=== PATIENT | female | born 1980 | race Caucasian/White ===

== ENCOUNTER 2017-10-16 21:29 | Emergency (ER) | payer SELFPAY, BC ==
[2017-10-16] MEDS: fentaNYL 100 MCG/2 ML INJECTION (J3010) IV (22:05)
[2017-10-16] MEDS: ONDANSETRON 4MG/2ML VIAL (J2405) IV (22:05)
[2017-10-16] MEDS: LIDOCAINE 1% MDV INJ 50 ML VIAL SC (22:45)
[2017-10-16] MEDS ORDERED: LIDOCAINE 1% MDV 20ML VIAL As Ordered (22:59)
[2017-10-16] MEDS: LIDOCAINE 2% MDV 20 ML VIAL SC (23:15)
== END 2017-10-17 00:31 | disposition home or self-care (01) ==
LOC: M ED 21:29
DX: S52.531A Colles' fracture of right radius, initial encounter for closed fracture (principal); W10.8XXA Fall (on) (from) other stairs and steps, initial encounter; Y92.098 Other place in other non-institutional residence as the place of occurrence of the external cause; F17.210 Nicotine dependence, cigarettes, uncomplicated
CPT/HCPCS: J2405

== ENCOUNTER → 2018-06-27 | Outpatient (CLI) | payer OTHER ==
[~2018-06-27] MED LIST: NAPR-50 PO; PERC5TAB12 PO
== END ==
LOC: M OUTALCOH 10:09
PROVIDERS: ATTEND Psychiatry & Neurology Psychiatry
DX: Z03.89 Encounter for observation for other suspected diseases and conditions ruled out (principal)

== ENCOUNTER 2018-07-04 15:34 | Outpatient (RCR) | payer OTHER | END 2018-07-27 | LOC: M OUTALCOH 15:34 | PROVIDERS: ATTEND Psychiatry & Neurology Psychiatry | DX: Z03.89 Encounter for observation for other suspected diseases and conditions ruled out (principal); Z72.0 Tobacco use ==

== ENCOUNTER 2018-12-19 17:02 | Emergency (ER) | payer OTHER, SELFPAY ==
[~2018-12-19] VITALS: Ht 152.4 cm; Wt 67.3 kg
[~2018-12-19 17:02] MED LIST changes: -NAPR-50 PO; +NAPR-837 PO
--- NOTE | 2018-12-19 18:20 | REP ---
Left scapula two views : There is no fracture or dislocation. Mineralization and joint spaces are normal. There are no calcifications or foreign bodies. Impression: Negative left scapula . Electronically Signed by Caleb Veliz MD 12/19/2018 06:11 P
[2018-12-19] MEDS ORDERED: CYCL5TAB PO (19:43)
[2018-12-19] MEDS ORDERED: AUGM875T28 PO (19:43)
[2018-12-19] MEDS ORDERED: KETO10TAB PO (19:43)
[2018-12-19] MEDS ORDERED: CYCLOBENZAPRINE 5MG TABLET PO ONE (19:45)
[2018-12-19] MEDS ORDERED: ADACEL/BOOSTRIX VACCINE (DIPHTH/PERTUSS/ACELL/TETANUS)0.5ML SYR (90715) IM ONE (19:45)
[2018-12-19] MEDS ORDERED: KETOROLAC TROMETHAMINE 10 MG TAB PO ONE (19:45)
[2018-12-19] MEDS ORDERED: AUGMENTIN 875 MG TAB PO ONE (19:45)
[2018-12-19 19:51] VITALS: BP 137/75
== END 2018-12-19 20:01 | disposition home or self-care (01) ==
LOC: M ED 17:02
DX: S41.032A Puncture wound without foreign body of left shoulder, initial encounter (principal); W22.8XXA Striking against or struck by other objects, initial encounter; Y92.830 Public park as the place of occurrence of the external cause; F17.210 Nicotine dependence, cigarettes, uncomplicated

== ENCOUNTER → 2019-03-21 | Outpatient (CLI) | payer MEDICAID ==
[~2019-03-21] MED LIST changes: +AUGM875T28 PO; +CYCL5TAB PO; +KETO10TAB PO
[2019-03-21 14:17] LABS: BASO % 0.3 % (0.0-1.0); EOS # 0.2 10^3/uL (0.0-0.5); EOS % 1.5 % (0.0-3.0); HEMATOCRIT 36.3 % (36.0-47.0); HEMOGLOBIN 12.2 g/dl (12.0-15.5); LYMPH % 17.5 % (24.0-44.0); MEAN CORPUSCULAR HEMOGLOBIN 31.9 pg (27.0-33.0); MEAN CORPUSCULAR HGB CONC 33.6 g/dl (32.0-36.5); MONO # 0.7 10^3/uL (0.0-0.8); NEUTROPHILS # 8.7 10^3/uL (1.5-8.5); NEUTROPHILS % 74.3 % (36.0-66.0); PLATELET COUNT, AUTOMATED 324 10^3/uL (150-450); RED BLOOD COUNT 3.82 10^6/uL (4.00-5.40); WHITE BLOOD COUNT 11.7 10^3/uL (4.0-10.0)
[2019-03-21 14:32] LABS: CREATININE,RANDOM URINE < 13.0 MG/DL; TOTAL PROTEIN,RANDOM URINE < 5.0 MG/DL (0.0-12.0)
[2019-03-21 14:42] LABS: ALT/SGPT 25 U/L (12-78); BILIRUBIN,TOTAL 0.2 MG/DL (0.2-1.0); CREATININE FOR GFR 0.62 MG/DL (0.55-1.30); FREE THYROXINE INDEX 3.7 % (1.3-4.8); GLOMERULAR FILTRATION RATE > 60.0 (>60); LDH LACTATE DEHYDROGENASE 146 U/L (84-246); T UPTAKE 24 % (30-39); THYROXINE (T4) 15.4 UG/DL (4.5-12.0); URIC ACID 2.6 MG/DL (2.6-6.0)
[2019-03-21 14:54] LABS: RUBELLA IgG QUALITATIVE IMMUNE (IMMUNE)
[2019-03-21 15:23] LABS: HIV 1&2 SCREEN CENTAUR NEGATIVE (NEGATIVE)
[2019-03-21 16:04] LABS: CHLAMYDIA DNA AMPLIFICATION NEGATIVE (NEGATIVE); GC DNA AMPLIFICATION NEGATIVE (NEGATIVE)
[2019-03-23 10:56] LABS: HEPATITIS C VIRUS ABY INDEX 0.1 INDEX (<0.8)
[2019-03-23 15:40] LABS: HPV HYBRID CAPTURE II Negative (Negative)
== END ==
LOC: M SMT 11:10
PROVIDERS: ATTEND Advanced Practice Midwife
DX: Z34.81 Encounter for supervision of other normal pregnancy, first trimester (principal); Z3A.12 12 weeks gestation of pregnancy

== ENCOUNTER → 2019-03-26 | Outpatient (CLI) | payer MEDICAID ==
--- NOTE | 2019-03-26 18:44 | REP ---
Clinical: Dating and viability. Technique: Transabdominal first trimester obstetrical ultrasound with color Doppler evaluation. Findings: Single live early intrauterine identified. CRL of 64 mm corresponds to 12 weeks 5 days gestational age with estimated date of delivery 10/03/2019. heart rate equals 163 beats per minute. No gross abnormalities are identified. Impression: A single live early intrauterine at 12 weeks 5 days gestational age. Complete anatomical assessment should be performed at 19-20 weeks. Electronically Signed by Zhen Burns MD 03/26/2019 06:36 P
== END ==
LOC: M RAD 15:47
PROVIDERS: ATTEND Advanced Practice Midwife
DX: O09.521 Supervision of elderly multigravida, first trimester (principal); O34.219 Maternal care for unspecified type scar from previous cesarean delivery; Z3A.12 12 weeks gestation of pregnancy

== ENCOUNTER → 2019-04-06 | Outpatient (CLI) | payer MEDICAID | LOC: M SMT 14:03 | PROVIDERS: ATTEND Advanced Practice Midwife | DX: O09.521 Supervision of elderly multigravida, first trimester (principal); Z3A.00 Weeks of gestation of pregnancy not specified ==

== ENCOUNTER → 2019-05-16 | Outpatient (CLI) | payer MEDICAID, OTHER ==
--- NOTE | 2019-05-16 13:31 | REP ---
Obstetric sonography: History: Supervision of for anatomy. Findings: Scanning through the gravid uterus demonstrates a viable single intrauterine gestation in a breech lie. motion is observed and heart rate is recorded at 141 beats per minute. An anterior grade 0 placenta is seen without evidence of previa or abruption. Amniotic fluid is subjectively normal. Closed cervical length is 3.7 cm. No extrauterine abnormality is observed. No anomaly is seen. kidneys and spine are less than optimally seen however due to position. The following additional anatomic structures are identified and felt to be unremarkable: cranium, choroid plexus, cavum, cerebellum and posterior fossa, face and profile, lungs, four-chamber heart, left and right ventricular outflow tract views, diaphragm, left-sided stomach, abdominal wall cord insertion, three-vessel cord, urinary bladder, upper and lower extremities. Biometry chart: BPD 4.3 cm = 19 weeks 1 day Head circumference 18.0 cm = 20 weeks 3 days Abdominal circumference 15.0 cm = 20 weeks 2 days Femur length 3.0 cm = 19 weeks 1 day Humeral length 3.0 cm = 19 weeks 6 days HC/AC ratio normal 1.20. Cephalic index 0.73 (0.70-0.86). Estimated weight 313 grams, 0 pounds 11 ounces, 36 percentile for 20 weeks 1 day. Impression: Viable single intrauterine gestation at 19 weeks 5 days by today's composite sonographic criteria. Expected gestational age estimate based on prior sonography is 20 weeks 0 days. TONY by prior sonography October 03, 2019. spine and kidneys less than optimally seen due to position. Electronically Signed by Mendez Leiva MD 05/16/2019 05:50 P
== END ==
LOC: M RAD 10:16
PROVIDERS: ATTEND Advanced Practice Midwife
DX: O09.522 Supervision of elderly multigravida, second trimester (principal); Z3A.19 19 weeks gestation of pregnancy

== ENCOUNTER → 2019-06-08 | Outpatient (CLI) | payer OTHER ==
--- NOTE | 2019-06-08 19:20 | REP ---
Obstetric sonography: History: Supervision of for anatomy. Comparison study May 16, 2019. Findings: Scanning through the gravid uterus demonstrates a viable single intrauterine gestation in a cephalic lie. motion is observed and heart rate is recorded at 141 beats per minute. Anterior grade zero placenta is seen without evidence of previa. Closed cervical length measured transabdominally is 3.6 cm. No extrauterine abnormalities observed. There has been appropriate interval growth. No anomalies seen. The following anatomic structures are identified and felt to be sonographically unremarkable: cranium, choroid plexus, cavum, cerebellum and posterior fossa, face and profile, lungs, four-chamber heart with left and right ventricular outflow tract views, diaphragm, left-sided stomach, abdominal wall cord insertion, three-vessel cord, kidneys and bladder, spine, upper and lower extremities. Biometry chart: BPD 5.8 cm 23 weeks 5 days head circumference 21.4 cm 23 weeks 3 days abdominal circumference 19.0 cm 23 weeks 5 days femur length 4.1 cm 23 weeks 2 days humeral length 3.9 cm 23 weeks 5 days HC/AC ratio normal 1.13 cephalic index normal 0.75 estimated weight 606 grams/1 pound 5 ounces/49th percentile for 23 weeks 3 days. Impression: Viable single intrauterine gestation at 23 weeks 4 days by today's composite criteria. Expected gestational age estimate based on prior sonography is 23 weeks 2 days. TONY by prior sonography October 03, 2019. anatomic survey is felt to be complete. Electronically Signed by Mendez Leiva MD 06/09/2019 05:39 A
== END ==
LOC: M RAD 15:54
PROVIDERS: ATTEND Advanced Practice Midwife
DX: O34.212 Maternal care for vertical scar from previous cesarean delivery (principal); Z3A.23 23 weeks gestation of pregnancy

== ENCOUNTER → 2019-07-09 | Outpatient (REF) | payer OTHER ==
[2019-07-09 17:33] LABS: HEMATOCRIT 31.1 % (36.0-47.0); HEMOGLOBIN 10.3 g/dl (12.0-15.5); MEAN CORPUSCULAR HEMOGLOBIN 32.6 pg (27.0-33.0); MEAN CORPUSCULAR HGB CONC 33.1 g/dl (32.0-36.5); MEAN CORPUSCULAR VOLUME 98.4 fl (80.0-96.0); PLATELET COUNT, AUTOMATED 398 10^3/uL (150-450); RED BLOOD COUNT 3.16 10^6/uL (4.00-5.40); WHITE BLOOD COUNT 16.1 10^3/uL (4.0-10.0)
== END ==
LOC: M PLALAB 11:53
PROVIDERS: ATTEND Obstetrics & Gynecology
DX: O34.212 Maternal care for vertical scar from previous cesarean delivery (principal); Z3A.00 Weeks of gestation of pregnancy not specified

== ENCOUNTER → 2019-08-07 | Outpatient (REF) | payer OTHER ==
[2019-08-07 18:06] LABS: HEMATOCRIT 32.8 % (36.0-47.0); HEMOGLOBIN 10.7 g/dl (12.0-15.5); MEAN CORPUSCULAR HEMOGLOBIN 31.9 pg (27.0-33.0); MEAN CORPUSCULAR HGB CONC 32.6 g/dl (32.0-36.5); MEAN CORPUSCULAR VOLUME 97.9 fl (80.0-96.0); PLATELET COUNT, AUTOMATED 447 10^3/uL (150-450); RED BLOOD COUNT 3.35 10^6/uL (4.00-5.40); WHITE BLOOD COUNT 17.8 10^3/uL (4.0-10.0)
[2019-08-07 18:09] LABS: ALT/SGPT 18 U/L (12-78); BILIRUBIN,TOTAL 0.2 MG/DL (0.2-1.0); GLOMERULAR FILTRATION RATE > 60.0 (>60); LDH LACTATE DEHYDROGENASE 144 U/L (84-246); URIC ACID 4.3 MG/DL (2.6-6.0)
[2019-08-07 18:45] LABS: CREATININE,RANDOM URINE < 13.0 MG/DL; TOTAL PROTEIN,RANDOM URINE < 5.0 MG/DL (0.0-12.0)
== END ==
LOC: M PLALAB 12:20
PROVIDERS: ATTEND Advanced Practice Midwife
DX: O13.3 Gestational [pregnancy-induced] hypertension without significant proteinuria, third trimester (principal)

== ENCOUNTER → 2019-09-05 | Outpatient (REF) | payer OTHER | LOC: M SFHCWAGY 13:02 | PROVIDERS: ATTEND Specialist | DX: Z34.83 Encounter for supervision of other normal pregnancy, third trimester (principal) ==